=== PATIENT | male | born 2000 | race Caucasian/White ===

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

== ENCOUNTER 2019-02-15 15:05 | Emergency (ER) | payer SELFPAY ==
[2019-02-15 15:06] VITALS: BP 120/44; PULSE 128; RESP 18; TEMP 36.6; O2SAT 96; BMI 19.4
--- NOTE | 2019-02-15 15:52 | ED.VISSUMM ---
- ER Visit Summary Date of Service: 02/15/19 Chief Complaint: Right index finger laceration History of Present Illness: The patient is a 18 M who has a index finger laceration on the right. He cut himself with a pocket knife yesterday. His last tetanus is unknown. He went to work today. He denies any pain or bleeding at this time. Physical Examination: Right hand exam reveals a 1 cm laceration between the PIP and MCP joint on the palm side of the right index finger. No bleeding. Test Results: None performed Emergency Department Course and Treatment: Since the laceration occurred yesterday I do not feel that closure is appropriate at this time. He will wash his hand and we will place a dry clean dressing with bacitracin. His tetanus will be updated. He will follow-up with his doctor next week for a wound check Treatment Plan: [] Disposition: Discharge Impression: Right index finger laceration, 1 cm This note was generated with [employer] dictation software. It may contain incorrect words, spelling, and punctuation that were not noted in review of the chart prior to signing ED Disposition - Plan for ED Patient: Referrals: Care Physician,No Primary [Primary Care Provider] -
--- NOTE | 2019-02-15 15:54 | ED.DEP ---
ED Disposition - Plan for ED Patient: Disposition: Home or Assisted Living Instructions: LACERATION, All Referrals: Care Physician,No Primary [Primary Care Provider] -
[2019-02-15 16:00] VITALS: PULSE 84; RESP 16; O2SAT 100
[2019-02-15] MEDS: Diphth,Pertuss(Acell),Tet Vac 0.5 ML Vial IM (16:03)
--- NOTE | 2019-02-15 16:04 | ED.RN ---
DISCHARGE INSTRUCTIONS GIVEN TO AND REVIEWED WITH PATIENT, PATIENT DENIES QUESTIONS OR CONCERNS AND VOICES UNDERSTANDING OF DISCHARGE INSTRUCTIONS. PT AMBULATES OUT OF ROOM WITHOUT DIFFICULTY.
== END 2019-02-15 16:15 | disposition home or self-care (01) ==
LOC: ED 16:05
PROVIDERS: Emergency Provider Emergency Medicine
DX: S61.210A Laceration without foreign body of right index finger without damage to nail, initial encounter (principal); W26.0XXA Contact with knife, initial encounter; Y93.9 Activity, unspecified; Y92.9 Unspecified place or not applicable
CPT/HCPCS: 90471; 90715; 99282

== ENCOUNTER 2020-05-07 19:51 | Emergency (ER) | payer MEDICAID, SELFPAY ==
[2020-05-07 19:52] VITALS: BP 142/60; PULSE 75; RESP 16; TEMP 19.8; O2SAT 100; BMI 24.0
--- NOTE | 2020-05-07 20:00 | ED.RN ---
THIS NURSE EDUCATED PT AND FAMILY ABOUT OUR DETOX PROGRAM. PT AND FAMILY STATED THAT THEY STILL WANTED TO BE SEEN.
--- NOTE | 2020-05-07 21:17 | ED.VIS.GEN ---
History of Present Illness Chief Complaint: Substance Abuse Informant: Patient, Family Onset: Month(s) Context: Gradual Onset Timing: Continuous Current Severity: Mild Maximum Severity: Mild Narrative: The patient is a 19-year-old male that presents to the emergency department requesting resources for detox. The patient states that he uses methamphetamines most days and smokes marijuana daily. He states his been using drugs for about 5 years. He denies being suicidal or homicidal. He states that he just feels sick of being dependent on drugs. He denies using opiates or benzodiazepines. He denies any other alcohol or intoxicants. He has never been through detox before. He denies fevers, chills, other systemic symptoms. Prior similar symptoms: No Recent Illness/Hospitalization: No Past Medical History - Allergies and Home Meds Allergies/Adverse Reactions: Allergies Penicillins Allergy (Verified 05/07/20 19:55) Unknown Primary Care Physician: Care Physician,No Primary [Primary Care Provider] - Prior records reviewed: Yes Past Medical History: None Surgical History: no surgical history Smoking Status: Current every day smoker Review of Systems General: Denies: Chills, Fever, Sweats Eyes: Denies: Visual changes - bilaterally, Diplopia ENT: Denies: Rhinorrhea, Sore throat Cardiovascular: Denies: Chest pain, Palpitations Respiratory: Denies: Dyspnea, Cough, Dyspnea on exertion Gastrointestinal: Denies: Abdominal pain, Nausea, Vomiting, Diarrhea, Melena, Hematochezia Genitourinary: Denies: Dysuria, Hematuria, Frequency Musculoskeletal: Denies: Back pain, Extremity Pain Skin: Denies: Rash, Wounds Neurological: Denies: Headache, Weakness, Numbness Physical Exam Vital Signs/Narrative: Vital Signs Temp Pulse Resp BP Pulse Ox 05/07/20 19:52 67.6 F L 75 16 142/60 H 100 Inital Vital Signs reviewed: Yes General: Well nourished, Well developed, No Acute Distress Head: Normocephalic, Atraumatic Eyes: Perrl, EOMI ENT: Moist mucous membranes, No rhinorrhea Neck: Supple, Nontender Cardiovascular: Regular rate, Regular rhythm, No murmurs Respiratory: No distress, CTA bilaterally, Chest nontender Abdomen: Soft, Nontender, Nondistended, Normal bowel sounds Back: Nontender, Normal Inspection Extremities: Nontender, No edema Skin: Normal color, No rash Neurological: Alert, Oriented x3, Cranial nerves II-XII grossly intact, Normal Strength, Normal Sensation Psychological: Normal affect, Normal Mood Diagnostic/Tx/Re-eval - Medical Decision Making The patient is well-appearing. He is not suicidal or homicidal. He does admit to marijuana dependence. He also admits to methamphetamine abuse. I do not think that he requires any inpatient detox. I have discussed this with social work. We are going to arrange him follow-up for outpatient resources for detox. He is comfortable with this plan of care. Impression 1. Methamphetamine abuse 2. Marijuana abuse ED Disposition - Plan for ED Patient: Instructions: ED AMPHETAMINE ABUSE Referrals: [facility] [STAFF PHYSICIAN] -
--- NOTE | 2020-05-07 22:07 | CM.ED ---
SOCIAL WORK Informant: Dr. Ramirez and nurse, Elvie Reason for Consult: Substance Abuse Chief Compliant: Patient wanting detox from meth and marijuana. Met with patient and patient's grandmother, Karey in room. Introduced role and reason for referral. Patient's grandmother upset and argumentative that there is no detox from methamphetamines and marijuana. Education, active listening and support provided. This worker facilitated phone call to [facility] NavigatorMaria Antonia. Intake appointment scheduled for , 05/14/2020 at 9am. Plan: Home with [facility] follow up. Germán Obrien, [employer] TECHNICIAN, WOODWORKING MACHINE OFFBEARER
== END 2020-05-07 21:56 | disposition home or self-care (01) ==
LOC: ED 21:18
PROVIDERS: Emergency Provider Emergency Medicine
DX: F15.10 Other stimulant abuse, uncomplicated (principal); F12.10 Cannabis abuse, uncomplicated; F17.200 Nicotine dependence, unspecified, uncomplicated
CPT/HCPCS: 99283

== ENCOUNTER 2021-01-11 15:42 | Emergency (ER) | payer MEDICAID, SELFPAY ==
[2021-01-11 15:42] VITALS: BP 111/52; PULSE 69; RESP 18; TEMP 36.5; O2SAT 98; BMI 19.9
--- NOTE | 2021-01-11 15:48 | ED.RN ---
PT TOLD MULTIPLE TIMES IN TRIAGE NOT TO EAT OR DRINK ANYTHING DUE TO ABD PAIN. PT STILL CONTINUES TO DRINK AT THIS TIME
--- NOTE | 2021-01-11 18:19 | ED.RN ---
pt flight of ideas, vague on why he is here. does report blood in stool but focusing on needing a stimulant and a sleep aid to help him with his job. he needs a mental evaluation for his job. does not have pcp
--- NOTE | 2021-01-11 18:33 | EDS_ITS ---
HPI History of Present Illness Chief Complaint: GI Bleed Informant: patient Narrative Narrative: Patient came for evaluation reporting blood from stools at 3 PM today. One episode. Reports concern for internal bleeding. Denies any trauma. Denies anticoagulation medicines. No fevers or lightheaded symptoms. Initial reports that he wants to be started on Adderall. He has not been diagnosed with ADHD. He does not have a PCP. Denies any suicidal homicidal ideations. Prior similar symptoms: No PFSH PFSH Home Medications Cough Syrup With Codeine 1 dose PO PRN PRN 07/13/14 [History Last Taken Unknown] Phenergan 25 mg PO Q6H PRN 07/13/14 [History Last Taken Unknown] oseltamivir 75 mg PO BID #10 capsule 07/13/14 [Rx Last Taken Unknown] Allergy/AdvReac Type Severity Reaction Status Date / Time No Known Allergies Allergy Verified 01/11/21 15:46 Social History Smoking Status: Unknown if ever smoked ROS ROS ED Constitutional Constitutional ED: Denies chills, fever(s) or sweats Eyes Eyes: Denies change in vision ENT ENT ED: Denies dysphagia or sore throat Cardiovascular Cardiovascular: Denies chest pain, leg edema, palpitations or racing heartbeat Respiratory/Chest Respiratory/Chest: Denies cough, dyspnea or dyspnea on exertion Gastrointestinal Gastrointestinal: Reports other Details: Bright red blood per rectum ; Denies abdominal pain, diarrhea, nausea or vomiting Genitourinary Genitourinary ED: Denies dysuria, hematuria or urinary frequency Musculoskeletal Musculoskeletal: Denies back pain, extremity pain or neck pain Integumentary Denies rash or wounds Neurologic Neurologic: Denies headache(s), paresthesias or weakness EXAM Physical Exam Const Vital Signs: 01/11/21 15:42 01/11/21 18:18 Temperature 97.7 F L Temperature Source Temporal Pulse Rate 69 Respiratory Rate 18 Respiratory Effort Normal Respiratory Pattern Normal Blood Pressure 111/52 L Blood Pressure Mean 71 Pulse Ox 98 Oxygen Delivery Method Room Air Positive well nourished and well developed General Appearance ED: well developed and NAD HEENT Reports moist mucous membranes normocephalic and atraumatic Eyes PERRL, EOMs intact bilaterally and conjunctivae normal Eyes Narrative: Normal conjunctiva. General Eye ED: Yes normal appearance of both eyes Neck no lymphadenopathy and supple General: Negative for tenderness Chest Wall Chest: Negative for tenderness Resp normal respiratory effort and normal air movement Effort and Inspection: symmetric chest movement; Negative for respiratory distress Cardio regular rate, regular rhythm and no murmurs Peripheral Pulses: pulses 2+ throughout GI normal to inspection, nondistended, normoactive bowel sounds and non-tender GI Narrative: Declines rectal exam. Palpation: Negative for guarding or rebound tenderness present Back/Spine no CVA tenderness and no thoracic nor lumbar tenderness Extremity normal to inspection General Extremety ED: Negative for edema or tenderness General Extremity: Negative for edema Neuro oriented x3 and no sensory deficits noted Sensorium / Orientation: awake and alert Skin no rashes or lesions noted and no wounds Skin Narrative: No skin pallor. MDM MDM MDM Narrative Medical decision making narrative: Patient nontoxic vitals stable, he declined a rectal exam. Labs were obtained hemoglobin 14.3. No active bleeding in the ED. He is given follow-up as an outpatient with return precautions. All questions answered. Lab Data Labs: Laboratory Results - last 24 hr 01/11/21 01/11/21 18:44 18:44 WBC 7.7 RBC 4.81 Hgb 14.3 Hct 45.0 MCV 93.6 MCH 29.7 MCHC 31.8 L RDW Std Deviation 42.4 RDW Coeff of Kira 12.1 Plt Count 250 MPV 8.2 Immature Gran % (Auto) 0.400 Neut % (Auto) 64.1 Lymph % (Auto) 26.6 Treasure % (Auto) 6.3 Eos % (Auto) 2.1 Baso % (Auto) 0.5 Absolute Neuts (auto) 5.0 Absolute Lymphs (auto) 2.06 Nucleated RBC % 0 Sodium 141 Potassium 3.6 Chloride 106 Carbon Dioxide 27.0 Anion Gap 8 BUN 11 Creatinine 0.90 Estim Creat Clear Calc 119.12 Est GFR (MDRD) Af Amer 137 Est GFR (MDRD) Non-Af 114 BUN/Creatinine Ratio 12.3 Glucose 101 Calcium 9.5 Discharge Plan Triage Chief Complaint: GI Bleed ED Provider: Juan Pablo Marquez Dx/Rx/DC Orders Clinical Impression: History of rectal bleeding Instructions: ED Lower GI Bleeding (Stable) Prescriptions: No Action Cough Syrup With Codeine 1 dose PO PRN PRN (Reason: Cough) RF: 0 Phenergan 25 mg PO Q6H PRN (Reason: Nausea) RF: 0 oseltamivir 75 MG capsule 75 mg PO BID Qty: 10 RF: 0 Primary Care Provider: Care Physician,No Primary Referrals: Radha Haney [NON-STAFF] - 2 Days Care Physician,No Primary [Primary Care Provider] - Disposition Disposition: Home, self care
[2021-01-11 18:55] LABS: Absolute Lymphocyte Count 2.06 X10^3/uL (0.83-4.51); Basophil# 0.04 X10^3/uL; Basophil% 0.5 % (0-1); Eosinophil# 0.16 X10^3/uL; Eosinophils% 2.1 % (0-5); Hemoglobin 14.3 g/dL (13.0-16.5); Lymphocyte # 2.06 X10^3/ul (0.83-4.51); Lymphocyte % 26.6 % (19-41); Mean Corp Hgb Conc 31.8 g/dL (32-36); Mean Corpuscular Hgb 29.7 pg (27.0-32.0); Mean Corpuscular Volume 93.6 fL (80-94); Mean Platelet Vol. 8.2 fl (6.2-12.0); Monocyte# 0.49 X10^3/uL; Monocyte% 6.3 % (0-10); NRBC Flagged by Analyzer 0 % (0-5); Neutrophil # 4.95 X10^3/uL (2.7-7.7); Neutrophil % 64.1 % (47-70); Platelet Count 250 K/mm3 (150-450); RBC Distribution Width CV 12.1 % (11.6-14.6); RBC Distribution Width SD 42.4 fl (35.1-43.9); Red Blood Count 4.81 M/mm3 (4.6-6.2); White Blood Count 7.7 K/mm3 (4.4-11.0)
[2021-01-11 19:14] LABS: Anion Gap 8 (5-15); BUN 11 mg/dL (7-18); BUN/Creat Ratio 12.3 RATIO (10-20); Calcium,Total 9.5 mg/dL (8.5-10.1); Chloride 106 mmol/L (98-107); EST Glomerular Filtration Rate 114 mL/min (>60); Est Glom Filt Rate - Afr Amer 137 mL/min (>60); Estimated Creatinine Clearance 119.12 ml/min; Glucose 101 mg/dL (74-106); Potassium 3.6 mmol/L (3.5-5.1); Sodium Level 141 mmol/L (136-145)
[2021-01-11 20:18] VITALS: BP 118/60; PULSE 79; RESP 18; O2SAT 96
== END 2021-01-11 20:19 | disposition home or self-care (01) ==
PROVIDERS: Emergency Provider Emergency Medicine
DX: K92.2 Gastrointestinal hemorrhage, unspecified (principal)
CPT/HCPCS: 80048; 85025; 99282

== ENCOUNTER 2021-01-16 00:03 | Emergency (ER) | payer MEDICAID, SELFPAY ==
[2021-01-16] VITALS (21 sets, daily range): BP systolic 91–156; BP diastolic 58–102; PULSE 56–98; RESP 14–24; TEMP 36.6; O2SAT 88–100; BMI 20.2
--- NOTE | 2021-01-16 00:50 | RAD_ITS ---
STUDY: X-RAY - LEFT HUMERUS REASON FOR EXAM: Male, 20 years old. Pain after trauma TECHNIQUE: Two view(s) of the humerus. COMPARISON: None. FINDINGS: Please see the impression. RAD/Humerus min 2 Views IMPRESSION: Anterior subcoracoid dislocation of the left humeral head. No definite acute fracture in the left humerus. Electronically Signed: Jeremy Montez MD at 1:48 EDT Tel , Service support ,
--- NOTE | 2021-01-16 00:50 | RAD_ITS ---
STUDY: X-RAY - LEFT SHOULDER REASON FOR EXAM: Male, 20 years old. Pain after trauma TECHNIQUE: 3 view(s) of the shoulder. COMPARISON: None. FINDINGS: Please see the impression. RAD/Shoulder min 2 Views IMPRESSION: Anterior subcoracoid dislocation of the left humeral head. No definite associated fracture. Questionable small sacs defect. Electronically Signed: Jeremy Montez MD at 1:49 EDT Tel , Service support ,
--- NOTE | 2021-01-16 00:52 | RAD_ITS ---
STUDY: X-RAY - LEFT RADIUS AND ULNA REASON FOR EXAM: Male, 20 years old. Pain after trauma TECHNIQUE: 2 view(s) of the forearm. COMPARISON: None. FINDINGS: There is no demonstrated soft tissue swelling. Normal visualized radius. Normal visualized ulna. RAD/Forearm 2 Views IMPRESSION: Normal x-ray examination of the radius and ulna. Electronically Signed: Jeremy Montez MD at 1:48 EDT Tel , Service support ,
[2021-01-16] MEDS: Naproxen 500 MG Tablet PO (01:19)
[2021-01-16] MEDS: Propofol 200 MG/20 ML Vial IV BOLUS (01:40)
--- NOTE | 2021-01-16 02:28 | RAD_ITS ---
STUDY: X-RAY - LEFT SHOULDER REASON FOR EXAM: Male, 20 years old. dislocation TECHNIQUE: 1 view(s) of the shoulder. COMPARISON: Earlier same day FINDINGS: Please see the impression. RAD/Shoulder min 2 Views IMPRESSION: Persistent anterior subcoracoid dislocation of the left humeral head. Electronically Signed: Jeremy Montez MD at 3:19 EDT Tel , Service support ,
[2021-01-16] MEDS: Lidocaine 1% (20 ml mdv) 20 ML Vial INFILT (03:52)
--- NOTE | 2021-01-16 04:16 | RAD_ITS ---
STUDY: X-RAY - LEFT SHOULDER REASON FOR EXAM: Male, 20 years old. dislocation TECHNIQUE: 1 view(s) of the shoulder. COMPARISON: None. FINDINGS: Shoulder dislocation without fracture RAD/Shoulder One View IMPRESSION: Dislocation without fracture Electronically Signed: Rafael Choi DO at 4:37 EDT Tel , Service support ,
--- NOTE | 2021-01-16 04:32 | EDS_ITS ---
HPI History of Present Illness Chief Complaint: Upper Extremity Injury Informant: patient Occured/Mechanism Comment: Pulled out of car following police josé luis injuring left arm. Onset/Context/Timing Onset: Today Current Severity: Moderate Maximum Severity: Moderate Narrative Narrative: Patient presents in place custody. He reportedly was in a josé luis with police. Patient was pulled from his vehicle and handcuffed. Patient claims that his left arm is injured. He later tells me that he has a history of left shoulder dislocations. He is left-hand dominant. I was advised the patient reported has used meth, marijuana, and moonshine tonight. [facility] Medical History Alcohol abuse Substance abuse Home Medications NK 01/16/21 [History Last Taken Unknown] Allergy/AdvReac Type Severity Reaction Status Date / Time No Known Allergies Allergy Verified 01/16/21 00:10 Social History Smoking Status: Current every day smoker tobacco type: cigarettes ROS ROS ED Constitutional Constitutional ED: Denies chills or fever(s) Eyes Eyes: Denies change in vision ENT ENT ED: Denies sore throat Cardiovascular Cardiovascular: Denies chest pain Respiratory/Chest Respiratory/Chest: Denies cough or dyspnea Gastrointestinal Gastrointestinal: Denies abdominal pain, diarrhea, nausea or vomiting Genitourinary Genitourinary ED: Denies dysuria Musculoskeletal Musculoskeletal: Reports other Details: Left upper extremity pain. Occasional tingling in fingers. ; Denies back pain Integumentary Denies rash Neurologic Neurologic: Denies headache(s) or weakness Psychiatric Psychiatric: Denies anxiety or depression Endocrine Endocrinology: Denies polydipsia or polyuria Allergic/Immunologic Allergic/Immunologic ED: Denies urticaria EXAM Physical Exam Const Vital Signs: 01/16/21 00:05 01/16/21 01:26 01/16/21 01:45 Temperature 97.9 F Temperature Source Temporal Pulse Rate 76 58 L Pulse Rate [1] 76 Pulse Rate [2] 74 Pulse Rate [7] 78 Pulse Rate [8] 66 Respiratory Rate 17 17 Respiratory Rate [1] 17 Respiratory Rate [2] 16 Respiratory Rate [7] 14 Respiratory Rate [8] 24 H Blood Pressure 156/97 H Blood Pressure [1] 131/62 H Blood Pressure [2] 123/76 H Blood Pressure [4] 144/102 H Blood Pressure [5] 91/58 L Blood Pressure [7] 116/88 H Blood Pressure [8] Blood Pressure Mean 116 Pulse Ox 97 97 Oxygen Delivery Method Room Air Room Air Oxygen Delivery Method [1] Nasal Cannula Oxygen Delivery Method [2] Nasal Cannula Oxygen Delivery Method [3] Nasal Cannula Oxygen Delivery Method [4] Nasal Cannula Oxygen Delivery Method [5] Nasal Cannula Oxygen Delivery Method [6] Nasal Cannula Oxygen Delivery Method [7] Nasal Cannula Oxygen Delivery Method [8] Nasal Cannula Oxygen Flow Rate (L/min) Oxygen Flow Rate (L/min) [1] 2 Oxygen Flow Rate (L/min) [2] 2 Oxygen Flow Rate (L/min) [3] 30 Oxygen Flow Rate (L/min) [5] 2 Oxygen Flow Rate (L/min) [6] 3 Oxygen Flow Rate (L/min) [7] 3 Oxygen Flow Rate (L/min) [8] 3 Fraction of Inspired Oxygen (FIO2) [3] 97 01/16/21 02:25 01/16/21 02:30 01/16/21 02:35 Temperature Temperature Source Pulse Rate 63 77 72 Pulse Rate [1] Pulse Rate [2] Pulse Rate [7] Pulse Rate [8] Respiratory Rate 24 H 20 H 18 Respiratory Rate [1] Respiratory Rate [2] Respiratory Rate [7] Respiratory Rate [8] Blood Pressure 121/63 H 114/76 123/60 H Blood Pressure [1] Blood Pressure [2] Blood Pressure [4] Blood Pressure [5] Blood Pressure [7] Blood Pressure [8] Blood Pressure Mean Pulse Ox 100 96 98 Oxygen Delivery Method Nasal Cannula Room Air Room Air Oxygen Delivery Method [1] Oxygen Delivery Method [2] Oxygen Delivery Method [3] Oxygen Delivery Method [4] Oxygen Delivery Method [5] Oxygen Delivery Method [6] Oxygen Delivery Method [7] Oxygen Delivery Method [8] Oxygen Flow Rate (L/min) 1 Oxygen Flow Rate (L/min) [1] Oxygen Flow Rate (L/min) [2] Oxygen Flow Rate (L/min) [3] Oxygen Flow Rate (L/min) [5] Oxygen Flow Rate (L/min) [6] Oxygen Flow Rate (L/min) [7] Oxygen Flow Rate (L/min) [8] Fraction of Inspired Oxygen (FIO2) [3] 01/16/21 03:52 01/16/21 03:54 01/16/21 04:27 Temperature Temperature Source Pulse Rate 56 L 64 Pulse Rate [1] Pulse Rate [2] Pulse Rate [7] Pulse Rate [8] 64 Respiratory Rate 16 16 Respiratory Rate [1] Respiratory Rate [2] Respiratory Rate [7] Respiratory Rate [8] 17 Blood Pressure 145/83 H 144/88 H Blood Pressure [1] Blood Pressure [2] Blood Pressure [4] Blood Pressure [5] Blood Pressure [7] Blood Pressure [8] 125/98 H Blood Pressure Mean Pulse Ox 99 99 Oxygen Delivery Method Room Air Room Air Oxygen Delivery Method [1] Oxygen Delivery Method [2] Oxygen Delivery Method [3] Oxygen Delivery Method [4] Oxygen Delivery Method [5] Oxygen Delivery Method [6] Oxygen Delivery Method [7] Oxygen Delivery Method [8] Nasal Cannula Oxygen Flow Rate (L/min) Oxygen Flow Rate (L/min) [1] Oxygen Flow Rate (L/min) [2] Oxygen Flow Rate (L/min) [3] Oxygen Flow Rate (L/min) [5] Oxygen Flow Rate (L/min) [6] Oxygen Flow Rate (L/min) [7] Oxygen Flow Rate (L/min) [8] 2 Fraction of Inspired Oxygen (FIO2) [3] 01/16/21 04:31 Temperature Temperature Source Pulse Rate Pulse Rate [1] Pulse Rate [2] Pulse Rate [7] Pulse Rate [8] Respiratory Rate 17 Respiratory Rate [1] Respiratory Rate [2] Respiratory Rate [7] Respiratory Rate [8] Blood Pressure Blood Pressure [1] Blood Pressure [2] Blood Pressure [4] Blood Pressure [5] Blood Pressure [7] Blood Pressure [8] Blood Pressure Mean Pulse Ox Oxygen Delivery Method Oxygen Delivery Method [1] Oxygen Delivery Method [2] Oxygen Delivery Method [3] Oxygen Delivery Method [4] Oxygen Delivery Method [5] Oxygen Delivery Method [6] Oxygen Delivery Method [7] Oxygen Delivery Method [8] Oxygen Flow Rate (L/min) Oxygen Flow Rate (L/min) [1] Oxygen Flow Rate (L/min) [2] Oxygen Flow Rate (L/min) [3] Oxygen Flow Rate (L/min) [5] Oxygen Flow Rate (L/min) [6] Oxygen Flow Rate (L/min) [7] Oxygen Flow Rate (L/min) [8] Fraction of Inspired Oxygen (FIO2) [3] Positive well nourished and well developed General Appearance ED: well developed HEENT normocephalic and atraumatic Neck supple Neck Narrative: No C-spine tenderness. Chest Wall inspection of chest normal and palpation of chest normal Resp normal respiratory effort and clear to auscultation bilaterally Cardio regular rate and regular rhythm GI non-tender Palpation: soft Extremity Extremity Narrative: Tenderness location around the left shoulder. No focal tenderness at the elbow or wrist. Able to make a hand grasp. Strong distal pulse and normal sensation. Neuro oriented x3 Sensorium / Orientation: alert Skin Lesions: no lesions Rashes: no rashes MDM MDM MDM Narrative Medical decision making narrative: Patient is initially given naproxen for pain. Left shoulder, humerus, and forearm x-rays are obtained. Radiography Diagnostic Testing: Radiology Impression Humerus X-Ray 01/16/21 00:50 IMPRESSION: Anterior subcoracoid dislocation of the left humeral head. No definite acute fracture in the left humerus. Electronically Signed: Jeremy Montez MD at 1:48 EDT Tel , Service support , Shoulder X-Ray 01/16/21 00:50 IMPRESSION: Anterior subcoracoid dislocation of the left humeral head. No definite associated fracture. Questionable small sacs defect. Electronically Signed: Jeremy Montez MD at 1:49 EDT Tel , Service support , Forearm X-Ray 01/16/21 00:52 IMPRESSION: Normal x-ray examination of the radius and ulna. Electronically Signed: Jeremy Montez MD at 1:48 EDT Tel , Service support , Shoulder X-Ray 01/16/21 02:28 IMPRESSION: Persistent anterior subcoracoid dislocation of the left humeral head. Electronically Signed: Jeremy Montez MD at 3:19 EDT Tel , Service support , Treatment and Re-Evaluation Comments:: Patient has evidence of left shoulder dislocation. Patient is consented for procedural sedation. Initial attempts at reduction used a total of 300 mg of propofol with multiple reduction techniques that were unsuccessful. Following this the patient was allowed to recover and the left shoulder joint was injected with 20 cc of 1% lidocaine. After 10 minutes patient's left shoulder was attempted reduction with 3 or 4 different techniques, again all unsuccessful. Patient was resedated with propofol with multiple attempts at reduction again without success. I spoke with Dr. Jordan, on-call for orthopedics. He presented to the emergency room. He attempted reduction without propofol. Ultimately propofol 100 mg IV was given again. Using multiple techniques Dr. Jordan was able to get the arm relocated. Repeat x-rays are unremarkable with normal positioning of the humeral head. Patient is in a sling and swath. He will be referred to orthopedics for outpatient follow-up as needed. Discharge Plan Triage Chief Complaint: Upper Extremity Injury ED Provider: Mayuri Oakes Dx/Rx/DC Orders Clinical Impression: Anterior shoulder dislocation Instructions: ED Dislocation: Shoulder (Reduced) Prescriptions: No Action NK RF: 0 Primary Care Provider: Care Physician,No Primary Referrals: Obdulio Jordan DO [STAFF PHYSICIAN] - 1-2 Weeks Care Physician,No Primary [Primary Care Provider] - Disposition Disposition: Home, Self Care
--- NOTE | 2021-01-16 05:34 | RAD_ITS ---
STUDY: X-RAY - LEFT SHOULDER REASON FOR EXAM: Male, 20 years old. dislocation TECHNIQUE: 3 view(s) of the shoulder. COMPARISON: Plain film earlier FINDINGS: Appropriate reduction of previously identified dislocation. No fracture RAD/Shoulder min 2 Views IMPRESSION: Normal x-ray examination of the shoulder. Electronically Signed: Rafael Choi DO at 6:30 EDT Tel , Service support ,
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
--- NOTE | 2021-01-16 10:50 | CM.ED ---
ANMOL Note ANMOL referral Source: resin remover ANMOL referral Reason: Patient reports he can go to his sister's house however, he doesn't have a jackson to his sisters residence. SW was advised by nurse discharge that patient reports he has money to pay for cab home to his sisters but doesn't have a jackson. ANMOL met with patient. He said that he wanted to go to [facility] and he was a regular there. SW called [facility] and spoke to staff and they report no beds available. Patient said that he can't drive. SW advised that the nearest alf is in [place] and this software writer is unknown if beds are available. Patient requested ambulance to alf due to his arm being dislocated. SW said that is not appropriate. Patient then asked to stay in the Emergency Room or hospital. SW said that is not appropriate. Patient said I can't take care of myself which is not accurate. Patient said that his sister is staying in a car and then said he was staying in a car but it is at the body shop. Patient said that his sister's house is not ready yet. Patient said that he has no way to contact his sister. Patient stated he needed a house or place to stay. Patient then stated he had money but I don't want to spend it all on a motel. Patient was advised he could check in with [facility] tomorrow to check on bed availability. Patient requested to be escorted to the [facility] and this software writer said that we at the hospital do not due it but the HRO might be open to that (as he has done it in the past). Patient was opening to asking the HRO if he could transport patient to [facility] (without any bed available) but HRO was not available. Patient reported he needed a place to stay and had to stay in the hospital as it was illegal to discharge homeless person. SW edcated patient that was inaccurate information and yes he could be discharged but the weather was nice outside. Patient continued to argue with this software writer about staying and leaving and thus Security was called and MD also spoke to patient and explained we can not provide a place to stay. SW again encouraged patient to use his money and stay at a hotel at night. Per ED staff patient was escorted out of the hospital. Patient presents as malingering and attempting to use the hospital due to his homelessness. Various options were presented but he wants staff to find him residence. Patient wants staff to find housing, get him a ride, and escort him to [facility] which are not appropriate. Teresa Lam
== END 2021-01-16 08:51 | disposition home or self-care (01) ==
PROVIDERS: Emergency Provider Emergency Medicine
DX: S43.005A Unspecified dislocation of left shoulder joint, initial encounter (principal); F17.210 Nicotine dependence, cigarettes, uncomplicated; X58.XXXA Exposure to other specified factors, initial encounter
CPT/HCPCS: 73020; 73030; 73060; 73090; 96374; 99152; 99153; 99285; J7030; A4216

== ENCOUNTER 2021-07-12 15:58 | Emergency (ER) | payer MEDICAID, SELFPAY ==
[2021-07-12 15:58] VITALS: BP 132/80; PULSE 118; RESP 18; TEMP 36.1; O2SAT 97; BMI 25.7
--- NOTE | 2021-07-12 16:23 | EX.ED.VIS.PS ---
HPI HPI - Psych History of Present Illness Chief Complaint: Mental Health Informant: patient and family Narrative Narrative: Patient presents with family secondary to visual and auditory hallucinations. Patient does have a history of alcohol and substance abuse. Family states that he has been mixing chemicals in the house lately that are strong enough that it pires their eyes. They do not know if he is injecting or ingesting any of these chemicals. Patient tells me he did smoke a blunt earlier today. He has recently been drinking alcohol daily, last drink yesterday. Family states he has been escalating for the past week or so. Typically he will escalate for a day or 2 and then come back down but does not seem to be subsiding. They describe him tearing of the house, throwing things away in the middle the night, sitting on the toilet with his clothes on for 45 minutes and then getting mad when someone asked him what he is doing. [facility] Medical History Alcohol abuse Substance abuse Home Medications NK 01/16/21 [History Last Taken Unknown] Allergy/AdvReac Type Severity Reaction Status Date / Time No Known Allergies Allergy Verified 01/16/21 00:10 Social History Smoking Status: Current every day smoker tobacco type: cigarettes ROS ROS ED Constitutional Constitutional ED: Denies chills or fever(s) Eyes Eyes: Denies change in vision ENT ENT ED: Denies sore throat Cardiovascular Cardiovascular: Denies chest pain Respiratory/Chest Respiratory/Chest: Denies cough or dyspnea Gastrointestinal Gastrointestinal: Denies abdominal pain, diarrhea, nausea or vomiting Genitourinary Genitourinary ED: Denies dysuria Musculoskeletal Musculoskeletal: Denies back pain Integumentary Denies rash Neurologic Neurologic: Denies headache(s) or weakness Psychiatric Psychiatric: Reports anxiety, depression and other Details: Hallucination Allergic/Immunologic Allergic/Immunologic ED: Denies urticaria EXAM Physical Exam Const Vital Signs: 07/12/21 15:58 07/12/21 20:10 07/12/21 21:08 Temperature 97 F L Temperature Source Temporal Pulse Rate 118 H 110 H 110 H Respiratory Rate 18 12 14 Blood Pressure 132/80 H 153/85 H 147/53 H Blood Pressure Mean 97 107 84 Pulse Ox 97 100 100 Oxygen Delivery Method Room Air Room Air Positive well nourished and well developed General Appearance ED: well developed HEENT atraumatic Eyes PERRL and EOMs intact bilaterally Resp normal respiratory effort and clear to auscultation bilaterally Cardio Rate: regular rate Rhythm: regular rhythm GI non-tender Palpation: soft Neuro oriented x3 Sensorium / Orientation: alert Psych mental status grossly normal and cooperative Psych Narrative: Place with eyes closed throughout exam and interview. Does answer questions. States he knows something is not right but does not know how to fix it. Skin Lesions: no lesions Rashes: no rashes MDM MDM MDM Narrative Medical decision making narrative: Lab work for psychiatric clearance obtained. Lab Data Attestation: I reviewed the patient's lab results. Labs: Laboratory Results - last 24 hr 07/12/21 07/12/21 07/12/21 16:55 16:55 16:55 WBC 9.0 RBC 5.74 Hgb 17.2 H Hct 52.4 MCV 91.3 MCH 30.0 MCHC 32.8 RDW Std Deviation 39.5 RDW Coeff of Kira 11.7 Plt Count 257 MPV 8.3 Immature Gran % (Auto) 0.600 Neut % (Auto) 74.7 H Lymph % (Auto) 12.7 L [place] % (Auto) 9.4 Eos % (Auto) 2.0 Baso % (Auto) 0.6 Absolute Neuts (auto) 6.7 Absolute Lymphs (auto) 1.14 Nucleated RBC % 0 Sodium 136 Potassium 3.6 Chloride 103 Carbon Dioxide 24.0 Anion Gap 9 BUN 11 Creatinine 0.98 Estim Creat Clear Calc 130.87 Est GFR (MDRD) Af Amer 124 Est GFR (MDRD) Non-Af 102 BUN/Creatinine Ratio 11.3 Glucose 96 Calcium 9.7 Urine Opiates Screen Urine Methadone Screen Ur Barbiturates Screen Ur Phencyclidine Scrn Ur Amphetamines Screen U Methamphetamin-MDMA U Benzodiazepines Scrn Urine Cocaine Screen U Cannabinoids Screen Ur Drug Screen Comment Ethyl Alcohol < 3.0 07/12/21 20:10 WBC RBC Hgb Hct MCV MCH MCHC RDW Std Deviation RDW Coeff of Kira Plt Count MPV Immature Gran % (Auto) Neut % (Auto) Lymph % (Auto) [place] % (Auto) Eos % (Auto) Baso % (Auto) Absolute Neuts (auto) Absolute Lymphs (auto) Nucleated RBC % Sodium Potassium Chloride Carbon Dioxide Anion Gap BUN Creatinine Estim Creat Clear Calc Est GFR (MDRD) Af Amer Est GFR (MDRD) Non-Af BUN/Creatinine Ratio Glucose Calcium Urine Opiates Screen NEGATIVE Urine Methadone Screen NEGATIVE Ur Barbiturates Screen NEGATIVE Ur Phencyclidine Scrn NEGATIVE Ur Amphetamines Screen POSITIVE H U Methamphetamin-MDMA NEGATIVE U Benzodiazepines Scrn NEGATIVE Urine Cocaine Screen NEGATIVE U Cannabinoids Screen POSITIVE H Ur Drug Screen Comment Ethyl Alcohol Treatment and Re-Evaluation Comments:: Lab work largely unremarkable. Hemoglobin is concentrated. Alcohol is negative. Tox urine positive for amphetamines and cannabinoids. Social work has been working with the patient and family. Patient did admit to social and political studies professor that he had used meth today. At this time he voices that he does not want help with his drug or alcohol abuse. Family member understands that his symptoms are likely secondary to the methamphetamines and will encourage him to stop. Information for 180 and other rehab programs are made available for him. Family will take him home. Discharge Plan Triage Chief Complaint: Mental Health ED Provider: Mayuri Oakes Dx/Rx/DC Orders Clinical Impression: Methamphetamine use, Hallucinations Instructions: ED Drug Abuse Prescriptions: No Action NK RF: 0 Primary Care Provider: Care Physician,No Primary Referrals: Care Physician,No Primary [Primary Care Provider] - [facility] [STAFF PHYSICIAN] - As soon as possible Disposition Disposition: Home, Self Care Discharge Date/Time: 07/12/21 21:10
[2021-07-12 17:01] LABS: Absolute Lymphocyte Count 1.14 X10^3/uL (0.83-4.51); Absolute Neutrophil Count 6.7 X10^3/uL (2.0-7.7); Basophil# 0.05 X10^3/uL; Basophil% 0.6 % (0-1); Eosinophil# 0.18 X10^3/uL; Hematocrit 52.4 % (40-54); Hemoglobin 17.2 g/dL (13.0-16.5); Lymphocyte # 1.14 X10^3/ul (0.83-4.51); Lymphocyte % 12.7 % (19-41); Mean Corp Hgb Conc 32.8 g/dL (32-36); Mean Corpuscular Volume 91.3 fL (80-94); Mean Platelet Vol. 8.3 fl (6.2-12.0); Monocyte# 0.85 X10^3/uL; Monocyte% 9.4 % (0-10); NRBC Flagged by Analyzer 0 % (0-5); Neutrophil # 6.73 X10^3/uL (2.7-7.7); Neutrophil % 74.7 % (47-70); Platelet Count 257 K/mm3 (150-450); RBC Distribution Width CV 11.7 % (11.6-14.6); RBC Distribution Width SD 39.5 fl (35.1-43.9); Red Blood Count 5.74 M/mm3 (4.6-6.2)
[2021-07-12 17:14] LABS: Alcohol, Blood (Medical)-Serum < 3.0 mg/dL
[2021-07-12 17:15] LABS: Anion Gap 9 (5-15); BUN 11 mg/dL (7-18); BUN/Creat Ratio 11.3 RATIO (10-20); Calcium,Total 9.7 mg/dL (8.5-10.1); Chloride 103 mmol/L (98-107); Creatinine, Serum 0.98 mg/dL (0.70-1.30); EST Glomerular Filtration Rate 102 mL/min (>60); Est Glom Filt Rate - Afr Amer 124 mL/min (>60); Estimated Creatinine Clearance 130.87 ml/min; Glucose 96 mg/dL (74-106); Potassium 3.6 mmol/L (3.5-5.1); Sodium Level 136 mmol/L (136-145)
[2021-07-12 20:10] VITALS: BP 153/85; PULSE 110; RESP 12; O2SAT 100
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
[2021-07-12 20:38] LABS: Amphetamine Urine VISTA POSITIVE (<1000 ng/mL); Barbiturate Urine VISTA NEGATIVE (< 200 ng/mL); Benzodiazepine Urine VISTA NEGATIVE (< 200 ng/mL); Cocaine Urine VISTA NEGATIVE (< 300 ng/mL); Ecstacy Urine VISTA NEGATIVE (< 500 ng/mL); Methadone Urine VISTA NEGATIVE (< 300 ng/mL); PCP Urine VISTA NEGATIVE (< 25 ng/mL); THC Urine VISTA POSITIVE (< 50 ng/mL); Vista UDS pH Range 6
[2021-07-12 21:08] VITALS: BP 147/53; PULSE 110; RESP 14; O2SAT 100
== END 2021-07-12 21:10 | disposition home or self-care (01) ==
PROVIDERS: Emergency Provider Emergency Medicine
DX: F15.90 Other stimulant use, unspecified, uncomplicated (principal); R44.0 Auditory hallucinations; R44.1 Visual hallucinations; F17.210 Nicotine dependence, cigarettes, uncomplicated
CPT/HCPCS: 36415; 80048; 80307; 82077; 85025; 87426; 99283; P9612

== ENCOUNTER 2021-08-12 14:22 | Emergency (ER) | payer MEDICAID, SELFPAY ==
[2021-08-12 14:24] VITALS: BP 165/75; PULSE 115; RESP 14; TEMP 36.5; O2SAT 99; BMI 24.2
--- NOTE | 2021-08-12 15:13 | EKG12_ITS ---
Test Reason : MEDICAL CLEARANCE Blood Pressure : / mmHG Vent. Rate : 096 BPM Atrial Rate : 096 BPM P-R Int : 152 ms QRS Dur : 088 ms QT Int : 330 ms P-R-T Axes : 050 -34 028 degrees QTc Int : 416 ms Normal sinus rhythm Left axis deviation Poor R wave progression Abnormal ECG Confirmed by WESLEY LFOOD, ALONSO ([id number]), general expeditor STACY GOETZ ([id number]) on 08/13/2021 9:38:18 AM Referred By: TIM Confirmed By:ALONSO OLSON MD
[2021-08-12 15:44] LABS: Absolute Lymphocyte Count 1.46 X10^3/uL (0.83-4.51); Absolute Neutrophil Count 5.5 X10^3/uL (2.0-7.7); Basophil# 0.06 X10^3/uL; Basophil% 0.8 % (0-1); Eosinophil# 0.18 X10^3/uL; Eosinophils% 2.3 % (0-5); Hematocrit 44.4 % (40-54); Lymphocyte # 1.46 X10^3/ul (0.83-4.51); Lymphocyte % 18.4 % (19-41); Mean Corp Hgb Conc 31.5 g/dL (32-36); Mean Corpuscular Hgb 29.3 pg (27.0-32.0); Mean Corpuscular Volume 92.9 fL (80-94); Monocyte# 0.64 X10^3/uL; Monocyte% 8.1 % (0-10); NRBC Flagged by Analyzer 0 % (0-5); Neutrophil # 5.46 X10^3/uL (2.7-7.7); Neutrophil % 68.5 % (47-70); Platelet Count 285 K/mm3 (150-450); RBC Distribution Width CV 12.3 % (11.6-14.6); RBC Distribution Width SD 42.5 fl (35.1-43.9); Red Blood Count 4.78 M/mm3 (4.6-6.2)
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
[2021-08-12 15:57] LABS: Anion Gap 6 (5-15); BUN 12 mg/dL (7-18); BUN/Creat Ratio 15.5 RATIO (10-20); Calcium,Total 9.2 mg/dL (8.5-10.1); Chloride 110 mmol/L (98-107); Creatinine, Serum 0.77 mg/dL (0.70-1.30); EST Glomerular Filtration Rate 134 mL/min (>60); Est Glom Filt Rate - Afr Amer 162 mL/min (>60); Estimated Creatinine Clearance 146.82 ml/min; Glucose 125 mg/dL (74-106); Potassium 3.8 mmol/L (3.5-5.1); Sodium Level 141 mmol/L (136-145)
[2021-08-12 15:57] LABS: Amphetamine Urine VISTA NEGATIVE (<1000 ng/mL); Barbiturate Urine VISTA NEGATIVE (< 200 ng/mL); Benzodiazepine Urine VISTA NEGATIVE (< 200 ng/mL); Cocaine Urine VISTA NEGATIVE (< 300 ng/mL); Ecstacy Urine VISTA NEGATIVE (< 500 ng/mL); Methadone Urine VISTA NEGATIVE (< 300 ng/mL); PCP Urine VISTA NEGATIVE (< 25 ng/mL); THC Urine VISTA POSITIVE (< 50 ng/mL); Vista UDS pH Range 6
--- NOTE | 2021-08-12 16:09 | EDS_ITS ---
HPI HPI - Psych History of Present Illness Chief Complaint: Mental Health Narrative Narrative: 20-year-old male with schizoaffective disorder presenting with abnormal behavior. He seems confused but does not have any specific complaints. He does not answer questions appropriately but he is smiling and calm. He states that he was smoking, it and inhaling Lysol apparently because he ran out of marijuana. He also admits to smoking rock salt and Comet bottle cleaner. He states he is not suicidal or homicidal. He does have a history of schizoaffective disorder and has been recently admitted and discharged. [facility] Medical History Alcohol abuse Substance abuse Home Medications risperidone 1 mg PO DAILY 08/12/21 [History Last Taken Unknown] risperidone 2 mg PO QHS 08/12/21 [History Last Taken Unknown] Allergy/AdvReac Type Severity Reaction Status Date / Time No Known Allergies Allergy Verified 08/12/21 14:27 Social History Smoking Status: Current every day smoker tobacco type: cigarettes ROS ROS ED Constitutional Constitutional ED: Denies fever(s) or sweats Eyes Eyes: Denies blurry vision or change in vision ENT ENT ED: Denies rhinorrhea or sore throat Cardiovascular Cardiovascular: Denies chest pain or palpitations Respiratory/Chest Respiratory/Chest: Denies cough or dyspnea Gastrointestinal Gastrointestinal: Denies abdominal pain or nausea Genitourinary Genitourinary ED: Denies dysuria or hematuria Musculoskeletal Musculoskeletal: Denies arthralgias or myalgias Integumentary Denies Abrasions or rash Neurologic Neurologic: Denies headache(s) Psychiatric Psychiatric: Denies suicidal ideation or suicidal thoughts EXAM Physical Exam Const Vital Signs: 08/12/21 14:24 08/12/21 19:43 Temperature 97.7 F L 97.1 F L Temperature Source Temporal Temporal Pulse Rate 115 H 68 Respiratory Rate 14 16 Blood Pressure 165/75 H 140/90 H Blood Pressure Mean 105 106 Pulse Ox 99 99 Oxygen Delivery Method Room Air Room Air Positive well nourished General Appearance ED: NAD HEENT Reports moist mucous membranes normocephalic and atraumatic Eyes PERRL and EOMs intact bilaterally Cardio Rate: tachycardic Rhythm: regular rhythm Neuro CN's II-XII intact bilaterally and no sensory deficits noted Sensorium / Orientation: alert Motor Exam: strength 5/5 throughout Psych Appearance: bizarre Attitude: bizarre Activity / Motor Behavior: appropriate eye contact, disorganized and restless Thought Process: disorganized and illogical Thought Content: No suicidality, No homicidality and No hallucination(s) Attention / Concentration: attention grossly impaired Insight: poor Judgement: poor Skin no wounds, no jaundice and no petechiae Rashes: no rashes MDM MDM MDM Narrative Medical decision making narrative: Patient presenting with bizarre behavior. He is difficult to redirect. He is calm and is not aggressive. He is not suicidal or homicidal. I do question his judgment and his speech is tangential and random. I have concern with his history of psychiatric disease that he is not able to care for himself since he has been smoking, Roxanol, and inhaling Lysol. When I asked him why he did this he stated that the CO2 compresses your brain cells and makes you smarter. I have concern due to his current psychosis and his negative talk screen that he will continue this behavior and end up hurting himself. I spoke with social work and they did agree. We think the patient would be best served to be inpatient. Patient was pink slipped. He was accepted to [facility]. He requested something to sleep and was given trazodone before bedtime. Patient will be transported when the squad is available. Impression: 1. Acute psychosis Lab Data Labs: Laboratory Results - last 24 hr 08/12/21 08/12/21 08/12/21 14:35 15:25 15:25 WBC 8.0 RBC 4.78 Hgb 14.0 Hct 44.4 MCV 92.9 MCH 29.3 MCHC 31.5 L RDW Std Deviation 42.5 RDW Coeff of Kira 12.3 Plt Count 285 MPV 8.0 Immature Gran % (Auto) 1.900 H Neut % (Auto) 68.5 Lymph % (Auto) 18.4 L [place] % (Auto) 8.1 Eos % (Auto) 2.3 Baso % (Auto) 0.8 Absolute Neuts (auto) 5.5 Absolute Lymphs (auto) 1.46 Nucleated RBC % 0 Sodium 141 Potassium 3.8 Chloride 110 H Carbon Dioxide 25.0 Anion Gap 6 BUN 12 Creatinine 0.77 Estim Creat Clear Calc 146.82 Est GFR (MDRD) Af Amer 162 Est GFR (MDRD) Non-Af 134 BUN/Creatinine Ratio 15.5 Glucose 125 H Calcium 9.2 Urine Opiates Screen NEGATIVE Urine Methadone Screen NEGATIVE Ur Barbiturates Screen NEGATIVE Ur Phencyclidine Scrn NEGATIVE Ur Amphetamines Screen NEGATIVE U Methamphetamin-MDMA NEGATIVE U Benzodiazepines Scrn NEGATIVE Urine Cocaine Screen NEGATIVE U Cannabinoids Screen POSITIVE H Ur Drug Screen Comment Ethyl Alcohol 08/12/21 15:25 WBC RBC Hgb Hct MCV MCH MCHC RDW Std Deviation RDW Coeff of Kira Plt Count MPV Immature Gran % (Auto) Neut % (Auto) Lymph % (Auto) [place] % (Auto) Eos % (Auto) Baso % (Auto) Absolute Neuts (auto) Absolute Lymphs (auto) Nucleated RBC % Sodium Potassium Chloride Carbon Dioxide Anion Gap BUN Creatinine Estim Creat Clear Calc Est GFR (MDRD) Af Amer Est GFR (MDRD) Non-Af BUN/Creatinine Ratio Glucose Calcium Urine Opiates Screen Urine Methadone Screen Ur Barbiturates Screen Ur Phencyclidine Scrn Ur Amphetamines Screen U Methamphetamin-MDMA U Benzodiazepines Scrn Urine Cocaine Screen U Cannabinoids Screen Ur Drug Screen Comment Ethyl Alcohol 6.0 Discharge Plan Triage Chief Complaint: Mental Health ED Provider: Isrrael Taylor Dx/Rx/DC Orders Prescriptions: No Action risperidone 2 mg tablet 2 mg PO QHS RF: 0 risperidone 1 mg tablet 1 mg PO DAILY RF: 0 Primary Care Provider: Care Physician,No Primary
--- NOTE | 2021-08-12 19:30 | CM.ED ---
SW Note SW received call from [facility]. Patient has been accepted. Accepting MD is Teresa and patient will go to [facility]. RN to RN is [phone]. strength and conditioning coach to arrange transportation. [facility] was contacted and advised a bed has been located for him. SW called [facility] and advised that a bed has been located for him. SW updated patient that he is going to [facility]. Patient very happy to go to [facility]. Plan: [facility] Teresa OCHOA
[2021-08-12 19:43] VITALS: BP 140/90; PULSE 68; RESP 16; TEMP 36.2; O2SAT 99
--- NOTE | 2021-08-12 19:55 | ED.RN ---
PHYSICIANS ETA IS 4-5 HOURS
[2021-08-12] MEDS: traZODone 100 MG Tablet PO (21:01)
[2021-08-12 23:00] VITALS: RESP 15
[2021-08-13] VITALS: RESP 16
[2021-08-13 01:29] VITALS: BP 115/90; PULSE 60; RESP 15; TEMP 36.8; O2SAT 99
--- NOTE | 2021-08-13 01:32 | ED.RN ---
PHYSICIANS CALLED AND SAID THAT THEY WOULDN'T TAKE THIS PATIENT UNTIL 6AM DUE TO IT HOLDING THEIR CREW OVER, SO THIS PATIENTS ETA WENT FROM 4-5 HOURS TO NOW 6AM OR EVEN LATER BECAUSE PHYSICIANS DOES NOT WANT TO SEND THEIR CREW TO [facility].
[2021-08-13 02:18] VITALS: RESP 16
[2021-08-13 03:30] VITALS: RESP 18
[2021-08-13 04:11] VITALS: RESP 16
[2021-08-13 06:14] VITALS: BP 121/58; PULSE 76; RESP 16; TEMP 37; O2SAT 97
== END 2021-08-13 06:42 ==
PROVIDERS: Emergency Provider Student in an Organized Health Care Education/Training Program; Visit Provider Student in an Organized Health Care Education/Training Program
DX: F44.9 Dissociative and conversion disorder, unspecified (principal); F25.9 Schizoaffective disorder, unspecified; F17.210 Nicotine dependence, cigarettes, uncomplicated; Z79.899 Other long term (current) drug therapy
CPT/HCPCS: 80048; 80307; 82077; 85025; 87426; 93005; 99285

== ENCOUNTER 2022-07-23 23:35 | Emergency (ER) | payer MEDICAID, SELFPAY ==
[2022-07-23 23:36] VITALS: BP 157/68; PULSE 94; RESP 16; TEMP 36.6; O2SAT 96; BMI 29.6
--- NOTE | 2022-07-24 00:02 | EDS_ITS ---
HPI HPI - GI History of Present Illness Chief Complaint: GI Bleed Informant: patient Nausea/Vomiting/Emesis GI Symptom: Positive for Nausea and Vomiting Onset: Today (JPTA) Quality: Positive for Blood streaks Episodes: 1 Diarrhea/Melena/Hematochezia GI Symptom: Positive for - (Last bowel movement earlier in the day, normal); Negative for Diarrhea, Melena or Hematochezia Associated Symptoms Associated Symptoms: Negative for Dysuria, Frequency, Hematuria or Urgency Narrative Narrative: Patient presents after vomiting a small amount of blood. He states he has a history of reflux symptoms for which she was placed on prescription famotidine for about the last 2 months and he has been compliant with it. He has history of alcohol abuse, according to EMR. He denies drinking any alcohol tonight. He states this was well after eating dinner, he laid down felt nauseated vomited once and came to the ED. He has never had an EGD. He takes no anticoagulants or antiplatelets. He denies any systemic symptoms such as lightheadedness or syncope/near syncope. [facility] Medical History Alcohol abuse GERD (gastroesophageal reflux disease) Schizophrenia Substance abuse Home Medications risperidone 1 mg tablet 1 mg PO DAILY 08/12/21 [History Last Taken Unknown] risperidone 2 mg tablet 2 mg PO QHS 08/12/21 [History Last Taken Unknown] pantoprazole 40 mg tablet,delayed release 40 mg PO DAILY #30 tabs 07/24/22 [Rx Last Taken Unknown] Allergy/AdvReac Type Severity Reaction Status Date / Time amoxicillin Allergy Rash Verified 07/23/22 23:38 Penicillins Allergy Rash Verified 07/23/22 23:38 Social History Smoking Status: Current every day smoker tobacco type: cigarettes ROS ROS ED Constitutional Constitutional ED: Denies chills or fever(s) Eyes Eyes: Denies change in vision or diplopia ENT ENT ED: Denies rhinorrhea or sore throat Cardiovascular Cardiovascular: Denies chest pain, lightheadedness, palpitations or syncope Respiratory/Chest Respiratory/Chest: Denies cough or dyspnea Gastrointestinal Gastrointestinal: Reports hematemesis, nausea and vomiting; Denies abdominal pain, diarrhea, hematochezia or melena Genitourinary Genitourinary ED: Denies dysuria or hematuria Musculoskeletal Musculoskeletal: Denies back pain or neck pain Integumentary Denies abscess or rash Neurologic Neurologic: Denies headache(s), paresthesias or weakness Psychiatric Psychiatric: Denies anxiety or suicidal thoughts EXAM Physical Exam Const Vital Signs: 07/23/22 23:36 07/24/22 00:13 Temperature 98 F Temperature Source Temporal Pulse Rate 94 Pulse Rate [Lying] 87 Pulse Rate [Sitting (for 1 minute prior to obtaining)] 99 Pulse Rate [Standing (for 1 minute prior to obtaining)] 100 Respiratory Rate 16 Blood Pressure 157/68 H Blood Pressure [Lying] 131/61 H Blood Pressure [Sitting (for 1 minute prior to obtaining)] 144/56 H Blood Pressure [Standing (for 1 minute prior to obtaining)] 133/60 H Blood Pressure Mean 97 Blood Pressure Mean [Lying] 84 Blood Pressure Mean [Sitting (for 1 minute prior to obtaining)] 85 Blood Pressure Mean [Standing (for 1 minute prior to obtaining)] 84 Pulse Ox 96 Oxygen Delivery Method Room Air Positive well nourished and well developed General Appearance ED: well developed and NAD HEENT Reports moist mucous membranes normocephalic and atraumatic Eyes PERRL and EOMs intact bilaterally Neck full ROM and supple Resp normal respiratory effort and clear to auscultation bilaterally Cardio regular rate, regular rhythm and no murmurs Rate: Negative for tachycardic GI non-tender and non-distended Auscultation: normoactive bowel sounds Palpation: soft Back/Spine no CVA tenderness General Back: other FROM Extremity normal to inspection General Extremety ED: Negative for edema, pulses abnormal or tenderness General Extremity: Negative for edema or pulses abnormal Neuro oriented x3, CN's II-XII intact bilaterally, no sensory deficits noted and gait normal Sensorium / Orientation: awake and alert Motor Exam: strength 5/5 throughout Skin no rashes or lesions noted and no wounds MDM MDM MDM Narrative Medical decision making narrative: Obtained orthostatics which were negative, blood counts are normal, BUN and other metabolic tests are normal. While awaiting work-up he was given IV Protonix 80 mg and observed. He had no further episodes of vomiting. He remained clinically and hemodynamically stable. I think it would be reasonable to discharge him, swapping his famotidine for pantoprazole and advising close outpatient follow-up, we discussed reasons to return such as significant /worsening bleeding. Lab Data Attestation: I reviewed the patient's lab results. Labs: Laboratory Results - last 24 hr 07/24/22 07/24/22 00:20 00:20 WBC 9.8 RBC 5.28 Hgb 15.6 Hct 48.2 MCV 91.3 MCH 29.5 MCHC 32.4 RDW Std Deviation 40.0 RDW Coeff of Kira 12.0 Plt Count 306 MPV 7.8 Immature Gran % (Auto) 0.400 Neut % (Auto) 61.3 Lymph % (Auto) 27.2 Glades % (Auto) 7.6 Eos % (Auto) 3.0 Baso % (Auto) 0.5 Absolute Neuts (auto) 6.0 Absolute Lymphs (auto) 2.65 Nucleated RBC % 0 Sodium 140 Potassium 3.6 Chloride 105 Carbon Dioxide 28.0 Anion Gap 7 BUN 18 Creatinine 1.00 Estim Creat Clear Calc 108.33 Est GFR (MDRD) Af Amer 119 Est GFR (MDRD) Non-Af 99 BUN/Creatinine Ratio 18.0 Glucose 105 Calcium 9.8 Discharge Plan Triage Chief Complaint: GI Bleed ED Provider: Rashid Gonzalez Dx/Rx/DC Orders Clinical Impression: Hematemesis, Hx of esophageal reflux Instructions: ED Upper GI Bleeding (Stable) Prescriptions: New pantoprazole 40 mg tablet,delayed release (DR/EC) 40 mg PO DAILY Qty: 30 0RF No Action risperidone 2 mg tablet 2 mg PO QHS risperidone 1 mg tablet 1 mg PO DAILY Primary Care Provider: Jose Francisco Clement Referrals: Jose Francisco Clement DO [Primary Care Provider] - 1 Week Activity Restrictions/Additional Instructions: Once you get the new prescription pantoprazole, you may discontinue the famotidine. Disposition Disposition: Home, Self Care
[2022-07-24 00:13] VITALS: BP 131/61; BP 133/60; BP 144/56; PULSE 100; PULSE 87; PULSE 99
[2022-07-24 00:53] LABS: Absolute Lymphocyte Count 2.65 X10^3/uL (0.83-4.51); Basophil# 0.05 X10^3/uL; Basophil% 0.5 % (0-1); Eosinophil# 0.29 X10^3/uL; Hematocrit 48.2 % (40-54); Hemoglobin 15.6 g/dL (13.0-16.5); Lymphocyte # 2.65 X10^3/ul (0.83-4.51); Lymphocyte % 27.2 % (19-41); Mean Corp Hgb Conc 32.4 g/dL (32-36); Mean Corpuscular Hgb 29.5 pg (27.0-32.0); Mean Corpuscular Volume 91.3 fL (80-94); Mean Platelet Vol. 7.8 fl (6.2-12.0); Monocyte# 0.74 X10^3/uL; Monocyte% 7.6 % (0-10); NRBC Flagged by Analyzer 0 % (0-5); Neutrophil # 5.99 X10^3/uL (2.7-7.7); Neutrophil % 61.3 % (47-70); Platelet Count 306 K/mm3 (150-450); Red Blood Count 5.28 M/mm3 (4.6-6.2); White Blood Count 9.8 K/mm3 (4.4-11.0)
[2022-07-24 01:28] LABS: Anion Gap 7 (5-15); BUN 18 mg/dL (7-18); Calcium,Total 9.8 mg/dL (8.5-10.1); Chloride 105 mmol/L (98-107); EST Glomerular Filtration Rate 99 mL/min (>60); Est Glom Filt Rate - Afr Amer 119 mL/min (>60); Estimated Creatinine Clearance 108.33 ml/min; Glucose 105 mg/dL (74-106); Potassium 3.6 mmol/L (3.5-5.1); Sodium Level 140 mmol/L (136-145)
[2022-07-24 02:15] VITALS: BP 131/60; PULSE 87; RESP 18; O2SAT 96
== END 2022-07-24 02:15 | disposition home or self-care (01) ==
PROVIDERS: Emergency Provider Emergency Medicine; PCP Student in an Organized Health Care Education/Training Program; Visit Provider Emergency Medicine
DX: K92.0 Hematemesis (principal); F17.210 Nicotine dependence, cigarettes, uncomplicated
CPT/HCPCS: 80048; 85025; 96365; 99284; A4216; J3490